=== PATIENT | male | born 1985 | race Caucasian/White ===

== ENCOUNTER 2019-04-02 02:08 | Emergency (ER) | payer BC, OTHER ==
[2019-04-02] MEDS ORDERED: Lactated Ringers 1,000 ML IV ONE (02:10)
[2019-04-02] MEDS ORDERED: Ondansetron 4 MG/2 ML SDV IVPUSH ONE (02:10)
[2019-04-02] MEDS ORDERED: Sodium Chloride 0.9% 10 ML Syringe FLUSH PRN (02:17)
[2019-04-02] MEDS ORDERED: Iopamidol 612 MG/ML 100 ML Bottle IVPUSH ONE (02:17)
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
--- NOTE | 2019-04-03 10:51 | CT ---
CT chest Technique: Multiple axial sections through the chest were obtained. Intravenous contrast was utilized. Comparison: No prior chest imaging is available. Findings: Mediastinum and hilar regions appear within normal limits. Aorta shows no aneurysm. No pericardial thickening is seen. Lungs are clear with no acute parenchymal change. Bone window settings were reviewed which show no acute osseous finding. Impression: 1. Nothing acute is appreciated on noncontrast head CT exam. Diagnostic code #1 This report was dictated in [facility] Time I agree with preliminary report from [facility], finalized on 04/02/19, 3:[address] abdomen and pelvis Technique: Multiple axial sections were obtained from above the dome of the diaphragm inferiorly through the pubic symphysis. Intravenous contrast was utilized. No oral contrast was given. Comparison: No prior abdominal imaging is available. Findings: Liver contains no focal abnormality. Slight wall thickening is seen within the distal esophagus raising the possibility of reflux esophagitis. Spleen appears within normal limits. Adrenal glands show no nodule. Pancreas is within normal limits. Gallbladder contains no calcified gallstones. Kidneys show symmetric contrast enhancement without hydronephrosis or mass. Aorta shows no aneurysm. No retroperitoneal adenopathy or mesenteric abnormalities are seen. Appendix is seen and is normal in size. Small fat-containing umbilical hernia is noted. No pelvic mass or adenopathy is seen. No free fluid or inflammatory change is identified. There is a linear opacity being seen within the distal ileum measuring approximately 1.8 cm in length and 3 mm in width. This most likely represents an ingested foreign body. Bone window settings were reviewed which show no acute osseous finding. Impression: 1. Opacity within the distal ileum believed to represent an ingested foreign body. Measurements of this finding are 1.8 cm x 3 mm. 2. Other findings as noted above. No acute finding is otherwise seen. Diagnostic code #3 This report was dictated in [facility] Time I mostly agree with preliminary report from [employer] (opaque foreign body within the distal ileum as noted above), finalized on 04/02/19, 3:57 AM Central Time
--- NOTE | 2019-04-03 10:51 | CT ---
Head CT Technique: Multiple axial sections through the brain were obtained. Intravenous contrast was not utilized. Comparison: No prior intracranial imaging is available. Findings: Ventricles along with basal cisterns and sulci over the convexities appear within normal limits for the patient's age. No abnormal parenchymal densities are seen. No evidence of intracranial hemorrhage. No midline shift or mass effect is seen. Bone window settings were reviewed. Visualized mastoid sinuses and paranasal sinuses show nothing acute. No acute calvarial abnormality is appreciated. Mild soft tissue swelling is noted within the left frontal scalp. Impression: 1. Mild soft tissue swelling within the left frontal scalp. 2. No acute intracranial abnormality is identified. Diagnostic code #2 This report was dictated in [facility] Time I agree with preliminary report from [facility], finalized on 04/02/19, 3:58 AM Central Time
--- NOTE | 2019-04-03 10:51 | CT ---
CT cervical spine Technique: Multiple axial sections were obtained from above C1 inferiorly to the mid to lower T2 vertebral level. Reconstructed coronal and sagittal images were obtained. Findings: Vertebral body heights are maintained. Mild disc space narrowing noted at C2-C3. Other disc spaces are felt to be preserved. Calcification is noted within the anterior annulus at C2-C3 which is degenerative. Minimal degenerative change is scattered within the apophyseal joints. No fracture is identified. No dislocation is seen. Impression: 1. Mild degenerative change. 2. Nothing acute is identified on CT study of the cervical spine. Diagnostic code #2 This report was dictated in [facility] Time I agree with preliminary report from [facility], finalized on 04/02/19, 3:56 AM Central Time
== END 2019-04-02 03:30 ==
LOC: JD.ED 02:08
DX: S00.81XA Abrasion of other part of head, initial encounter (principal); F10.129 Alcohol abuse with intoxication, unspecified; F17.210 Nicotine dependence, cigarettes, uncomplicated; Y90.0 Blood alcohol level of less than 20 mg/100 ml; V57.5XXA Driver of pick-up truck or van injured in collision with fixed or stationary object in traffic accident, initial encounter; Y92.410 Unspecified street and highway as the place of occurrence of the external cause
CPT/HCPCS: 36415; 70450; 71260; 72125; 74177; 80053; 80306; 80320; 81001; 85007; 85027; 99285; Q9967; 99283; G0480